=== PATIENT | female | born 1945 | race Caucasian/White ===

== ENCOUNTER → 2021-10-13 | Outpatient (CLI) | payer MEDICARE ==
[~2021-10-13] MED LIST: ALENDRONATE SOD70 MG PO; B COMPLEX; CALTRATE 600 +1 EAC1 PO; CRESTOR10 MG PO; FISH OIL 1,0001 EAC4 PO; LASIX20 MG PO; LEVOTHYROXINE112 MC1 PO; LOSARTAN POTASS25 MG PO; METOPROLOL SUCC25 MG PO; PREDNISOLONE; VITAMIN B12; VITAMIN D; XARELTO20 MG PO
[2021-10-13 12:04] LABS: HEMOGLOBIN 11.8 gm/dl (12.3-15.3); RED BLOOD COUNT 3.41 M/UL (4.00-5.10); WHITE BLOOD COUNT 7.8 K/UL (4.5-11.0)
[2021-10-13 12:35] LABS: BUN/CREATININE RATIO 23 (0-10)
== END ==
LOC: OPSV2 10:00
PROVIDERS: Orthopaedic Surgery
DX: Z01.818 Encounter for other preprocedural examination (principal); G56.02 Carpal tunnel syndrome, left upper limb
CPT/HCPCS: 80048; 85025; 93005

== ENCOUNTER → 2021-10-20 | Day surgery (SDC) | payer MEDICARE ==
[~2021-10-20] VITALS: Ht 170.2 cm; Wt 98.0 kg
[~2021-10-20] MED LIST changes: +TYLENOL W/CODEIN1 EA PO
== END | disposition home or self-care (01) ==
LOC: OR 06:04
DX: G56.03 Carpal tunnel syndrome, bilateral upper limbs (principal); I10 Essential (primary) hypertension; E78.5 Hyperlipidemia, unspecified; Z79.82 Long term (current) use of aspirin; Z20.822 Contact with and (suspected) exposure to COVID-19; Z87.891 Personal history of nicotine dependence; L40.50 Arthropathic psoriasis, unspecified; E03.9 Hypothyroidism, unspecified; E07.9 Disorder of thyroid, unspecified; I49.9 Cardiac arrhythmia, unspecified
CPT/HCPCS: J0690; J1100; J1885; J2405; J2704; J7030; J7120

== ENCOUNTER → 2022-06-07 | Outpatient (CLI) | payer MEDICARE | LOC: KOH-I 14:33 | DX: M79.671 Pain in right foot (principal); M79.672 Pain in left foot | CPT/HCPCS: 73630 ==

== ENCOUNTER → 2022-06-21 | Outpatient (CLI) | payer MEDICARE | LOC: KOH-I 15:13 | DX: I73.9 Peripheral vascular disease, unspecified (principal) | CPT/HCPCS: 93925 ==